=== PATIENT | female | born 1940 | race Caucasian/White ===

== ENCOUNTER 2023-06-20 07:20 | Day surgery (SDC) | payer MEDICARE ==
[~2023-06-20 07:20] MED LIST: Bacitracin Oint 1 GM U/D Packet ONE; Bupivacaine 0.5% 50 ML MDV ONE; Lidocaine 1% with EPINEPHrine 1:100,000 50 ML MDV ONE; Propofol 200 MG/20 ML SDV ONE; fentaNYL 50 MCG/ML SDV ONE
[2023-06-20] MEDS ORDERED: Acetaminophen 500 MG Tab PO ONE (07:45)
[2023-06-20] MEDS ORDERED: Lactated Ringers 1,000 ML IV SCH ×2 (08:00)
[2023-06-20] MEDS ORDERED: ceFAZolin 2 GM in Premix Bag 1 BAG IV ONE (08:30)
[2023-06-20] MEDS ORDERED: Propofol 200 MG/20 ML SDV ONE (08:34)
== END 2023-06-20 10:47 | disposition home or self-care (01) ==
LOC: JP.SDS 07:20
PROVIDERS: ATTEND Student in an Organized Health Care Education/Training Program
DX: D04.5 Carcinoma in situ of skin of trunk (principal); E66.9 Obesity, unspecified; E11.40 Type 2 diabetes mellitus with diabetic neuropathy, unspecified; N39.3 Stress incontinence (female) (male); N18.30 Chronic kidney disease, stage 3 unspecified; I12.9 Hypertensive chronic kidney disease with stage 1 through stage 4 chronic kidney disease, or unspecified chronic kidney disease; E11.65 Type 2 diabetes mellitus with hyperglycemia; Z87.891 Personal history of nicotine dependence; Z68.41 Body mass index [BMI] 40.0-44.9, adult
CPT/HCPCS: 11601; 12031; 88305; A9270; J0690; J2704; J3010; J7120; J3490

== ENCOUNTER 2024-05-21 12:11 | Emergency (ER) | payer MEDICARE ==
[2024-05-21 13:15] LABS: BASOPHILS ABSOLUTE AUTO 0.03 K/uL (0.00-0.10); BASOPHILS PERCENT AUTO 0.3 % (0.1-1.3); EOSINOPHILS PERCENT AUTO 0.2 % (0.0-5.4); HEMATOCRIT 42.8 % (34.3-46.0); HEMOGLOBIN 14.6 g/dL (11.2-15.5); IMMATURE GRAN ABSOLUTE AUTO 0.03 K/uL (0.00-0.23); IMMATURE GRAN PERCENT AUTO 0.3 % (0.0-0.7); LYMPHOCYTES ABSOLUTE AUTO 0.93 K/uL (0.8-3.3); LYMPHOCYTES PERCENT AUTO 9.8 % (11.4-47.7); MEAN CORPUSCULAR HEMOGLOBIN 30.7 pg (31.6-35.5); MEAN CORPUSCULAR HGB CONC 34.1 g/dL (31.6-35.5); MEAN CORPUSCULAR VOLUME 89.9 fL (81.4-99.0); MONOCYTES ABSOLUTE AUTO 1.07 K/uL (0.20-0.90); MONOCYTES PERCENT AUTO 11.3 % (3.3-12.6); NEUTROPHILS ABSOLUTE AUTO 7.42 K/uL (1.0-7.6); NEUTROPHILS PERCENT AUTO 78.1 % (40.0-78.1); PLATELET COUNT,PLT 436 K/uL (130-375); RED BLOOD CELL COUNT 4.76 M/uL (3.77-5.24); WHITE BLOOD CELL COUNT,WBC 9.5 K/uL (3.2-11.0)
[2024-05-21] MEDS: Sodium Chloride 0.9% 10 ML Syringe FLUSH PRN ×2 (13:15→14:16)
[2024-05-21] MEDS: Sodium Chloride 0.9% 1,000 ML IV STA (13:15)
[2024-05-21 13:16] LABS: EOSINOPHILS ABSOLUTE AUTO 0.02 K/uL (0.00-0.40)
[2024-05-21 13:38] LABS: A/G RATIO 0.6 (1.2-2.2); ALANINE AMINOTRANSFERASE,ALT 101 U/L (12-78); ALBUMIN 2.7 g/dL (3.4-5.0); ALKALINE PHOSPHATASE 241 U/L (46-116); ASPARTATE AMNIOTRANSFERASE,AST 112 U/L (15-37); BLOOD UREA NITROGEN,BUN 30 mg/dL (7-18); CALCIUM 9.6 mg/dL (8.5-10.1); CARBON DIOXIDE,CO2 25 mmol/L (21-32); CHLORIDE,CL 88 mmol/L (100-108); CREATININE 1.3 mg/dL (0.6-1.0); EST CRCL DRUG DOSING (CG) 28.47 mL/min; ESTIMATED GFR 40 mL/min (>60); GLUCOSE RANDOM 198 mg/dL (74-106); PROTEIN TOTAL,TP 7.6 g/dL (6.4-8.2); SODIUM,NA 125 mmol/L (140-148)
[2024-05-21] MEDS: Sodium Chloride 0.9% 80 ML IV SCH (14:16)
[2024-05-21] MEDS: Iopamidol 612 MG/ML 100 ML Bottle IV PRN (14:17)
[2024-05-21 15:24] LABS: APPEARANCE,URINE CLEAR (CLEAR); BILIRUBIN,URINE NEGATIVE (NEGATIVE); COLOR,URINE YELLOW (YELLOW); GLUCOSE,URINE >=1000 mg/dL (NEGATIVE); KETONES,URINE 15 mg/dL (NEGATIVE); LEUKOCYTE ESTERASE,URINE NEGATIVE (NEGATIVE); NITRITE,URINE NEGATIVE (NEGATIVE); OCCULT BLOOD,URINE TRACE-INTACT (NEGATIVE); PH,URINE 5.5 (5.0-8.0); PROTEIN,URINE NEGATIVE (NEGATIVE)
[2024-05-21 15:34] LABS: AMORPHOUS SEDIMENT,URINE NOT SEEN; BACTERIA,URINE MANY; EPITHELIAL CELLS,URINE FEW; MUCUS,URINE NOT SEEN; RBC,URINE 0-5 (0-5); WBC,URINE 0-5 (0-5)
[2024-05-21] MEDS: LORazepam 2 MG/ML SDV IVPUSH ONE (16:24)
[2024-05-21] MEDS: Gadoteridol 279.3 MG/ML 20 ML SDV IV SCH (17:35)
[2024-05-21] MEDS: Sodium Chloride 0.9% 1,000 ML IV SCH (18:18)
[2024-05-22] MEDS: diphenhydrAMINE 25 MG Cap PO ONE (00:11)
[2024-05-22] MEDS: Insulin Lispro 100 Unit/ML 3 ML KwikPen SUBCUT SCH (02:43)
[2024-05-22] MEDS: glipiZIDE 5 MG Tab.ER PO SCH (08:58)
[2024-05-22] MEDS: Aspirin 81 MG Tab.EC PO SCH (08:58)
[2024-05-22] MEDS: Empagliflozin 25 MG Tab PO SCH (08:58)
[2024-05-22] MEDS: metFORMIN 500 MG Tab PO SCH (08:58)
[2024-05-22] MEDS: Hydrochlorothiazide/Triamterene 25-37.5 Tab PO SCH (08:59)
[2024-05-22] MEDS ORDERED: Non-Formulary Medication 1 Each (Triamterene/Hydrochlorothiazid [Triamterene-Hctz 37.5-25 PO SCH (09:00)
[2024-05-22] MEDS ORDERED: Non-Formulary Medication 1 Each (Glipizide [Glucotrol Xl] 10 MG Tab.Er) PO SCH (09:00)
[2024-05-22] MEDS ORDERED: Non-Formulary Medication 1 Each (Metformin [Glucophage] 1,000 MG Tablet) PO SCH (09:00)
[2024-05-22] MEDS ORDERED: Losartan 50 MG Tab PO SCH (09:00)
[2024-05-22] MEDS: Sodium Chloride 0.9% 80 ML IV SCH (12:05)
[2024-05-22] MEDS: Sodium Chloride 0.9% 10 ML Syringe FLUSH ONE (12:05)
[2024-05-22] MEDS: Iopamidol 612 MG/ML 100 ML Bottle IV SCH (12:05)
[2024-05-24 14:00] LABS: BODY FLUID TYPE THORACENTESIS FLUID
[2024-05-24 14:04] LABS: BODY FLUID TYPE PERITONEAL FLUID
[2024-05-24 14:21] LABS: AMYLASE,BODY FLUID 1 U/L; GLUCOSE,BODY FLUID 225 mg/dL; LACTATE DEHYDROGENASE,BODY FL 176 IU/L; PROTEIN,BODY FLUID 3.2 g/dL
[2024-05-24 14:21] LABS: AMYLASE BODY FLUID TYPE THORACENTESIS FLUID; AMYLASE,BODY FLUID 6 U/L; GLUCOSE,BODY FLUID 195 mg/dL; LACTATE DEHYDROGENASE,BODY FL 229 IU/L
[2024-05-24 14:22] LABS: AMYLASE BODY FLUID TYPE PERITONEAL FLUID
[2024-05-24 14:25] LABS: TRIGLYCERIDES,BODY FLUID 64 mg/dL
[2024-05-24 14:37] LABS: TRIGLYCERIDES,BODY FLUID 27 mg/dL
[2024-05-24 15:02] LABS: WBC BODY FLUID 2375 /ul
[2024-05-24 15:02] LABS: MONONUCLEAR, BODY FLUID 62 %; POLYMORPHONUCLEAR, BODY FLUID 38 %; RBC,BODY FLUID 1035 /ul; WBC BODY FLUID 860 /ul
[2024-05-24 15:03] LABS: MONONUCLEAR, BODY FLUID 97 %; POLYMORPHONUCLEAR, BODY FLUID 3 %; RBC,BODY FLUID 1085 /ul
== END 2024-05-22 14:10 | disposition home or self-care (01) ==
LOC: JP.ED 12:11
DX: R91.8 Other nonspecific abnormal finding of lung field (principal); Z90.49 Acquired absence of other specified parts of digestive tract; Z79.899 Other long term (current) drug therapy; Z79.82 Long term (current) use of aspirin
CPT/HCPCS: 36415; 71260; 71260-26; 74177; 74177-26; 74181; 74181-26; 74183; 74183-26; 80053; 81001; 82947; 83605; 83690; 84484; 85025; 96361; 96374; 99284-25; 99285; A9270-GY; A9579; J1815; J2060; J3490; J7030; Q9967